=== PATIENT | male | born 1990 | race African-American/Black ===

== ENCOUNTER 2017-04-03 20:11 | Emergency (ER) | payer OTHER ==
[~2017-04-03 20:11] MED LIST: AMOXICILLIN PO; BACTRIM DS TABL1 TA1 PO; ILOTYCIN1 GM OS; POLYTRIM EYE DR10 ML OP; RONDEC-DM SYRU120 ML PO; VICODIN PO
== END 2017-04-03 21:15 | disposition home or self-care (01) ==
LOC: CFTX 20:11 → CED 20:11 → CFTX 21:11
DX: J02.0 Streptococcal pharyngitis (principal); F17.210 Nicotine dependence, cigarettes, uncomplicated; Z90.89 Acquired absence of other organs
CPT/HCPCS: 87880; 99283